=== PATIENT | male | born 1940 | race Caucasian/White ===

== ENCOUNTER → 2018-08-27 | Outpatient (CLI) | payer OTHER ==
[~2018-08-27] MED LIST: ACETAMINOPHEN325 M1 PO; ADULT LOW DOSE81 MG PO; ALTACE10 MG PO; ALTACE5 M1 PO; ASPIRIN EC325 M1 PO; AVODART0.5 MG PO; CENTRUM SILVER1 EAC2 PO; CLOPIDOGREL75 MG PO; COENZYME Q-10200 MG PO; COLACE100 MG PO; COREG6.25 MG PO; DESYREL50 MG PO; EFFIENT10 MG PO; FERREX 150 FORT1 CAP PO; FISH OIL 1,0001 EAC5 PO; FLOMAX0.4 MG PO; HYDROCODONE-AP1 EAC6 PO; IMDUR 30 MG TAB30 M1 PO; LIPITOR80 MG PO; LOPRESSOR50 MG PO; LUMIGAN2.5 M1 OPHTHALMIC; MIRALAX17 GM PO; MUCINEX TA600 MG/TA2 PO; NIACIN50 MG PO; NITROGLYCERIN0.4 MG SL; PRILOSEC20 MG PO; PROSCAR 5MG TABL5 MG PO; SENNA PO; SUPER B-50 COM1 EACH PO; TOPROL XL100 MG PO; VITAMIN D35000 UNI1 PO; ZOCOR 20 MG TAB20 M1 PO; ZOCOR40 MG PO
== END ==
LOC: NUC 07:07
DX: I25.10 Atherosclerotic heart disease of native coronary artery without angina pectoris (principal); Z95.1 Presence of aortocoronary bypass graft; Z95.5 Presence of coronary angioplasty implant and graft